=== PATIENT | female | born 1965 | race Hispanic/Latino ===

== ENCOUNTER 2017-11-23 17:59 | Inpatient (IN) | payer OTHER ==
[2017-11-23] MEDS ORDERED: Iohexol 240 (50 ml) PO STA (18:45)
[2017-11-23] MEDS ORDERED: Sodium Chloride 0.9% 500 ML IV STA (18:46)
[2017-11-23] MEDS ORDERED: Iohexol 240 (50 ml) ONE (19:16)
[2017-11-23 19:55] LABS: VENOUS BLOOD GAS BASE EXCESS 8.1 mmol/L (0.0-2.0); VENOUS BLOOD GAS PCO2 48 mmHg (40-60); VENOUS BLOOD GAS PO2 39 mm/Hg (30-55); VENOUS BLOOD PH 7.45 (7.32-7.43)
[2017-11-23 20:02] LABS: ALB/GLOB RATIO 1.2 (1.0-2.1); ALBUMIN 4.4 g/dL (3.5-5.0); CALCIUM 9.7 mg/dL (8.4-10.2); GFR AFRICAN-AMERICAN > 60; GFR NON-AFRICAN AMERICAN > 60; LIPASE 41 U/L (23-300); PROTHROMBIN TIME 11.2 Seconds (9.8-13.1)
[2017-11-23 20:03] LABS: BASO % 0.1 % (0.0-2.0); EOS % 0.1 % (0.0-4.0); HEMOGLOBIN 14.3 g/dL (12.0-16.0); LYMPH # 0.9 K/uL (1.0-4.3); LYMPH % 7.9 % (20.0-40.0); MEAN CELL VOLUME 87.3 fl (81.0-99.0); MEAN CORPUSCULAR HEMOGLOBIN 29.2 pg (27.0-31.0); MEAN CORPUSCULAR HGB CONC 33.4 g/dL (33.0-37.0); MEAN PLATELET VOLUME 8.8 fl (7.2-11.7); MONO # 0.4 K/uL (0.0-0.8); MONO % 3.7 % (0.0-10.0); NEUT # 9.6 K/uL (1.8-7.0); NEUT % 88.2 % (50.0-75.0); PLATELET COUNT 287 K/uL (130-400); RBC 4.91 Mil/uL (3.80-5.20); RED CELL DISTRIBUTION WIDTH 13.7 % (11.5-14.5); WHITE BLOOD COUNT 10.9 K/uL (4.8-10.8)
[2017-11-23 20:22] LABS: BARBITURATES, UR NEGATIVE (NEGATIVE); BENZODIAZEPINES, UR NEGATIVE (NEGATIVE); OPIATES, UR NEGATIVE (NEGATIVE); PHENCYCLIDINE, UR NEGATIVE (NEGATIVE)
[2017-11-23 20:23] LABS: ALT/SGPT 45 U/L (9-52); AST/SGOT 40 U/L (14-36); BLOOD UREA NITROGEN 12 mg/dl (7-17)
[2017-11-23] MEDS ORDERED: Iohexol 300 100 ML IJ ONE (21:14)
[2017-11-23 21:55] LABS: BANDS 3 % (0-2); HYPOCHROMIC SLIGHT; LYMPHOCYTE 9 % (20-50); MONOCYTE 4 % (0-10); NEUTROPHIL 84 % (42-75); PLATELET ESTIMATE NORMAL (NORMAL); TOTAL CELLS COUNTED 100
--- NOTE | 2017-11-23 22:08 | ED PDOC ---
HPI: Abdomen Time Seen by Provider: 11/23/17 18:30 Chief Complaint (Nursing): Abdominal Pain Chief Complaint (Provider): Abdominal pain History Per: Patient History/Exam Limitations: no limitations Onset/Duration Of Symptoms: Hrs (18:00) Location Of Pain/Discomfort: Diffuse Associated Symptoms: Nausea, Vomiting, Constipation Additional Complaint(s): Sarah Varghese is a 52 year old female, with a past medical history of HTN, who presents to the emergency department complaining of abdominal pain onset since 18:00 today while at rest. Patient last ate at 17:00 and was feeling well prior to that. Patient reports the pain is diffused and is more severe in upper and central abdomen associated with constipation, nausea and non bloody, non bilious vomiting. She hasn't taken anything for the pain. Patient is requesting morphine. She denies any other medical complaints. PMD: Pardeep Vega Past Medical History Reviewed: Historical Data, Nursing Documentation, Vital Signs Vital Signs: Last Vital Signs Temp 97.5 F L 11/26/17 08:11 Pulse 65 11/26/17 08:11 Resp 20 11/26/17 08:11 BP 117/78 11/26/17 08:11 Pulse Ox 99 11/26/17 08:11 - Medical History PMH: HTN - Surgical History Surgical History: Appendectomy, Cholecystectomy, Hernia Repair (umbilical x2), C -Section - Family History Family History: States: Hypertension - Social History Current smoker - smoking cessation education provided: No Alcohol: None Drugs: Denies - Home Medications Home Medications: Ambulatory Orders Medication Instructions Recorded Atenolol [Tenormin] 25 mg DAILY 11/24/17 Atorvastatin [Lipitor] 10 mg PO DAILY 11/24/17 amLODIPine [Norvasc] 10 mg DAILY 11/24/17 - Allergies Allergies/Adverse Reactions: Allergies Allergy/AdvReac Type Severity Reaction Status Date / Time No Known Allergies Allergy Unverified 10/31/14 11:45 Review of Systems ROS Statement: Except As Marked, All Systems Reviewed And Found Negative Gastrointestinal: Positive for: Nausea, Vomiting (non bloody non bilious ), Abdominal Pain, Constipation Physical Exam - Reviewed Nursing Documentation Reviewed: Yes Vital Signs Reviewed: Yes - Physical Exam Appears: Positive for: In Acute Distress (moderate painful) Head Exam: Positive for: ATRAUMATIC, NORMOCEPHALIC Skin: Positive for: Normal Color, Warm, Dry Eye Exam: Positive for: Normal appearance ENT: Positive for: Other (tacky mucous membrane) Neck: Positive for: Painless ROM, Supple Cardiovascular/Chest: Positive for: Regular Rate, Rhythm. Negative for: Murmur Respiratory: Positive for: Normal Breath Sounds. Negative for: Respiratory Distress Gastrointestinal/Abdominal: Positive for: Soft, Tenderness (diffusely ). Negative for: Mass, Guarding, Rebound Back: Positive for: Normal Inspection. Negative for: L CVA Tenderness, R CVA Tenderness, Decreased ROM Extremity: Positive for: Normal ROM. Negative for: Deformity, Swelling Lymphatic: Negative for: Adenopathy Neurologic/Psych: Positive for: Alert, Oriented - Laboratory Results Result Diagrams: 11/25/17 06:00 11/25/17 06:00 - ECG O2 Sat by Pulse Oximetry: 97 (RA) Pulse Ox Interpretation: Normal Medical Decision Making Medical Decision Making: Initial Impression: abdominal pain. Differential includes but not limited to: obstruction, colitis, diverticulitis, mesenteric ischemia, intra-abdominal abscess. Initial Plan: --Type and screen --VBG --Abd Pelvis PO & IV Contrast [CT] --CMP --Drug screen, urine --Lipase --Magnesium --Phosphorus --Urine --Urine dipstick --CBC w/ differential --PTT --PT --Dextrose 5%-0.9% NS 500 ml 1,000 ml IV 100 mls/hr --Morphine 4 mg IVP --Sodium Chloride 500 ml IV 500 mls/hr --Omnipaque 240 50 ml PO --Zofran ODT 4 mg PO --Blood culture --Reevaluation 22:15 Abdomen/Pelvis CT FINDINGS: Lung bases: Unremarkable. No mass. No consolidation. Mediastinum: Moderate hiatal hernia. ABDOMEN: Liver: Hepatic steatosis. Gallbladder and bile ducts: Cholecystectomy. No ductal dilation. Pancreas: Unremarkable. No mass. No ductal dilation. Spleen: Unremarkable. No splenomegaly. Adrenals: Unremarkable. No mass. Kidneys and ureters: Unremarkable. No solid mass. No hydronephrosis. Stomach and bowel: Multiple dilated small bowel loops in the left mid abdomen and in the pelvis. Small bowel feces sign. Transition point likely in the pelvis. Stranding of the mesenteric fat. Colonic diverticulosis. Appendix: No findings to suggest acute appendicitis. PELVIS: Bladder: Unremarkable. No mass. Reproductive: Unremarkable as visualized. ABDOMEN and PELVIS: Intraperitoneal space: Unremarkable. No free air. No significant fluid collection. Bones/joints: No acute fracture. No dislocation. Soft tissues: Unremarkable. Vasculature: Unremarkable. No abdominal aortic aneurysm. Lymph nodes: Unremarkable. No enlarged lymph nodes. IMPRESSION: 1. CT findings consistent with mid small bowel obstruction. 2. Remainder of findings as above. DW pt findings and plan of care. JESSIE Gonzáles president [employer] and Dr Oseguera Surgery. Hospitalized for acute small bowel obstruction. Needs IVF and NPO for now. Scribe Attestation: Documented by Colby Yates, acting as a scribe for Birgit Mac MD Provider Scribe Attestation: All medical record entries made by the Scribe were at my direction and personally dictated by me. I have reviewed the chart and agree that the record accurately reflects my personal performance of the history, physical exam, medical decision making, and the department course for this patient. I have also personally directed, reviewed, and agree with the discharge instructions and disposition. Disposition - Clinical Impression Clinical Impression: SBO (small bowel obstruction) Counseled Patient/Family Regarding: Studies Performed, Diagnosis - Disposition Disposition Time: 22:15 Condition: FAIR - Pt Status Changed To: Hospital Disposition Of: Inpatient - Admit Certification Admit to Inpatient:: After my assessment, the patient will require hospitalization for at least two midnights. This is because of the severity of symptoms shown, intensity of services needed, and/or the medical risk in this patient being treated as an outpatient. - POA Present On Arrival: None
--- NOTE | 2017-11-23 22:16 | CT ---
EXAM: CT Abdomen and Pelvis With Intravenous Contrast CLINICAL HISTORY: 52 years old, female; Pain; Abdominal pain; Periumbilical; Prior surgery; Surgery date: 6+ months; Surgery type: Hernia repair x 2, cholecystectomy, appendectomy, ; Additional info: Abd pain multiple prior abd surgeries TECHNIQUE: Axial computed tomography images of the abdomen and pelvis with intravenous contrast. All CT scans at this facility use one or more dose reduction techniques, viz.: automated exposure control; ma/kV adjustment per patient size (including targeted exams where dose is matched to indication; i.e. head); or iterative reconstruction technique. Coronal and sagittal reformatted images were created and reviewed. CONTRAST: 95 mL of omnipaque administered intravenously. COMPARISON: No relevant prior studies available. FINDINGS: Lung bases: Unremarkable. No mass. No consolidation. Mediastinum: Moderate hiatal hernia. ABDOMEN: Liver: Hepatic steatosis. Gallbladder and bile ducts: Cholecystectomy. No ductal dilation. Pancreas: Unremarkable. No mass. No ductal dilation. Spleen: Unremarkable. No splenomegaly. Adrenals: Unremarkable. No mass. Kidneys and ureters: Unremarkable. No solid mass. No hydronephrosis. Stomach and bowel: Multiple dilated small bowel loops in the left mid abdomen and in the pelvis. Small bowel feces sign. Transition point likely in the pelvis. Stranding of the mesenteric fat. Colonic diverticulosis. Appendix: No findings to suggest acute appendicitis. PELVIS: Bladder: Unremarkable. No mass. Reproductive: Unremarkable as visualized. ABDOMEN and PELVIS: Intraperitoneal space: Unremarkable. No free air. No significant fluid collection. Bones/joints: No acute fracture. No dislocation. Soft tissues: Unremarkable. Vasculature: Unremarkable. No abdominal aortic aneurysm. Lymph nodes: Unremarkable. No enlarged lymph nodes. IMPRESSION: 1. CT findings consistent with mid small bowel obstruction. 2. Remainder of findings as above.
--- NOTE | 2017-11-23 22:58 | CP.PCM.CON ---
<Wes Gonzáles - Last Filed: 11/24/17 00:40> History of Present Illness - History of Present Illness History of Present Illness: General Surgery Consult Note: Dr. Oseguera 52F with PMHx of HTN presents to [facility] ED with complaints of abdominal pain. Patient states abdominal pain began two days ago and it has been worsening since. According to patient patient began around 11PM on 11/22/17. She states the pain was located along her mid abdominal region. She denies any radiation and describes pain as cramping in nature. Patient admits to having multiple bouts of non-bloody emesis, last episode being upon arrival to ED. At time of examination patient complained of abdominal distension and nausea. Patient states she has not had a bowel movement in the past 2 days and also denies passing flatus. She denies headaches/dizziness, chest pain, shortness of breath , diarrhea, dysuria. NGT inserted at bedside with no complications. Patient tolerated procedure well. Upon insertion ~100-150cc of bilious fluid ouput. PMHx: as stated above PSurgHx: laparoscopic cholecystectomy, umbilical hernia repair w. mesh x2, Csection, appendectomy Soc Hx: EtOH use in social settings, denies smoking, denies illicit drug use Allergies: NKDA Fam Hx: non-contributory Review of Systems - Review of Systems Review of Systems: 12pt ROS unremarkable, except as stated in HPI Past Patient History - Infectious Disease Hx of Infectious Diseases: None - Past Social History Alcohol: None Drugs: Denies - CARDIAC Hx Hypertension: Yes - PSYCHIATRIC Hx Substance Use: No - SURGICAL HISTORY Hx Appendectomy: Yes Hx Cholecystectomy: Yes Meds Allergies/Adverse Reactions: Allergies Allergy/AdvReac Type Severity Reaction Status Date / Time No Known Allergies Allergy Unverified 10/31/14 11:45 - Medications Medications: Current Medications Dextrose/Sodium Chloride (Dextrose 5%-0.9% Ns 500 Ml) 1,000 mls @ 100 mls/hr IV .Q10H [facility] Last Admin: 11/23/17 19:15 Dose: 100 mls/hr Physical Exam - Constitutional Appears: No Acute Distress - Head Exam Head Exam: NORMOCEPHALIC - Eye Exam Eye Exam: EOMI, Normal appearance - ENT Exam ENT Exam: Mucous Membranes Moist - Respiratory Exam Respiratory Exam: NORMAL BREATHING PATTERN - Cardiovascular Exam Cardiovascular Exam: +S1, +S2 - GI/Abdominal Exam GI & Abdominal Exam: Distended, Soft. absent: Firm, Guarding, Rebound, Rigid, Tenderness - Neurological Exam Neurological exam: Alert, Oriented x3 - Psychiatric Exam Psychiatric exam: Normal Mood - Skin Skin Exam: Dry, Intact, Warm Results - Vital Signs Recent Vital Signs: Last Vital Signs Temp 99.4 F 11/23/17 18:24 Pulse 78 11/23/17 18:24 Resp 16 11/23/17 18:24 BP 127/86 11/23/17 18:24 Pulse Ox 97 11/23/17 22:53 - Labs Result Diagrams: 11/23/17 19:30 11/23/17 19:30 Labs: Laboratory Results - last 24 hr 11/23/17 11/23/17 11/23/17 19:30 19:30 19:30 WBC 10.9 H RBC 4.91 Hgb 14.3 Hct 42.8 MCV 87.3 MCH 29.2 MCHC 33.4 RDW 13.7 Plt Count 287 MPV 8.8 Neut % (Auto) 88.2 H Lymph % (Auto) 7.9 L Howard % (Auto) 3.7 Eos % (Auto) 0.1 Baso % (Auto) 0.1 Neut # (Auto) 9.6 H Lymph # (Auto) 0.9 L Howard # (Auto) 0.4 Eos # (Auto) 0.0 Baso # (Auto) 0.0 Neutrophils % (Manual) 84 H Band Neutrophils % 3 H Lymphocytes % (Manual) 9 L Monocytes % (Manual) 4 Platelet Estimate Normal Hypochromasia (manual) Slight PT INR APTT pO2 VBG pH VBG pCO2 VBG HCO3 VBG Total CO2 VBG O2 Sat (Calc) VBG Base Excess VBG Potassium Glucose Lactate FiO2 Sodium 144 Potassium 3.4 L Chloride 99 Carbon Dioxide 29 Anion Gap 19 BUN 12 Creatinine 0.6 L Est GFR ( Amer) > 60 Est GFR (Non-Af Amer) > 60 Random Glucose 133 H Calcium 9.7 Phosphorus 4.7 H Magnesium 2.2 Total Bilirubin 0.9 AST 40 H ALT 45 Alkaline Phosphatase 48 Total Protein 8.0 Albumin 4.4 Globulin 3.6 Albumin/Globulin Ratio 1.2 Lipase 41 Venous Blood Potassium Urine Opiates Screen Negative Urine Methadone Screen Negative Ur Barbiturates Screen Negative Ur Phencyclidine Scrn Negative Ur Amphetamines Screen Negative U Benzodiazepines Scrn Negative U Oth Cocaine Metabols Negative U Cannabinoids Screen Negative BBK History Checked 11/23/17 11/23/17 11/23/17 19:30 19:30 19:40 WBC RBC Hgb Hct MCV MCH MCHC RDW Plt Count MPV Neut % (Auto) Lymph % (Auto) Howard % (Auto) Eos % (Auto) Baso % (Auto) Neut # (Auto) Lymph # (Auto) Howard # (Auto) Eos # (Auto) Baso # (Auto) Neutrophils % (Manual) Band Neutrophils % Lymphocytes % (Manual) Monocytes % (Manual) Platelet Estimate Hypochromasia (manual) PT 11.2 INR 1.0 APTT 30.0 pO2 39 VBG pH 7.45 H VBG pCO2 48 VBG HCO3 30.7 VBG Total CO2 34.9 H VBG O2 Sat (Calc) 77.0 H VBG Base Excess 8.1 H VBG Potassium 3.1 L Glucose 143 H Lactate 1.4 FiO2 21.0 Sodium 140.0 Potassium Chloride 102.0 Carbon Dioxide Anion Gap BUN Creatinine Est GFR ( Amer) Est GFR (Non-Af Amer) Random Glucose Calcium Phosphorus Magnesium Total Bilirubin AST ALT Alkaline Phosphatase Total Protein Albumin Globulin Albumin/Globulin Ratio Lipase Venous Blood Potassium 3.1 L Urine Opiates Screen Urine Methadone Screen Ur Barbiturates Screen Ur Phencyclidine Scrn Ur Amphetamines Screen U Benzodiazepines Scrn U Oth Cocaine Metabols U Cannabinoids Screen BBK History Checked No verified bt - Imaging and Cardiology CT scan - abdomen Status: Image reviewed by me, Report reviewed by me Assessment & Plan - Assessment and Plan (Free Text) Assessment: 52F with SBO Plan: -NPO -IVF -Analgesic/Anti-emetic -SCDs -NGT to low continuous wall suction -Discussed with Dr. Oseguera who agrees with plan -Ioana PGY2 <Gilbert Oseguera - Last Filed: 11/24/17 11:27> History of Present Illness - History of Present Illness History of Present Illness: Patient was seen and examined at the bedside. Agree with resident's note above. Meds - Medications Medications: Current Medications Potassium Chloride/Dextrose/Sod Cl (Potassium Chl 40 Meq In D5-1/2ns) 1,000 mls @ 125 mls/hr IV .Q8H [facility] Stop: 04/14/18 09:23 Morphine Sulfate (Morphine) 4 mg IVP Q6 PRN PRN Reason: Pain, moderate (4-7) Ondansetron HCl (Zofran Inj) 4 mg IVP Q4 PRN PRN Reason: Nausea/Vomiting Results - Vital Signs Recent Vital Signs: Last Vital Signs Temp 98.5 F 11/24/17 08:25 Pulse 70 11/24/17 08:25 Resp 20 11/24/17 08:25 BP 106/65 11/24/17 08:25 Pulse Ox 93 L 11/24/17 08:25 - Labs Result Diagrams: 11/24/17 08:00 11/24/17 08:00 Labs: Laboratory Results - last 24 hr 11/23/17 11/23/17 11/23/17 19:30 19:30 19:30 WBC 10.9 H RBC 4.91 Hgb 14.3 Hct 42.8 MCV 87.3 MCH 29.2 MCHC 33.4 RDW 13.7 Plt Count 287 MPV 8.8 Neut % (Auto) 88.2 H Lymph % (Auto) 7.9 L Howard % (Auto) 3.7 Eos % (Auto) 0.1 Baso % (Auto) 0.1 Neut # (Auto) 9.6 H Lymph # (Auto) 0.9 L Howard # (Auto) 0.4 Eos # (Auto) 0.0 Baso # (Auto) 0.0 Neutrophils % (Manual) 84 H Band Neutrophils % 3 H Lymphocytes % (Manual) 9 L Monocytes % (Manual) 4 Platelet Estimate Normal Hypochromasia (manual) Slight PT INR APTT pO2 VBG pH VBG pCO2 VBG HCO3 VBG Total CO2 VBG O2 Sat (Calc) VBG Base Excess VBG Potassium Glucose Lactate FiO2 Sodium 144 Potassium 3.4 L Chloride 99 Carbon Dioxide 29 Anion Gap 19 BUN 12 Creatinine 0.6 L Est GFR ( Amer) > 60 Est GFR (Non-Af Amer) > 60 Random Glucose 133 H Calcium 9.7 Phosphorus 4.7 H Magnesium 2.2 Total Bilirubin 0.9 AST 40 H ALT 45 Alkaline Phosphatase 48 Total Protein 8.0 Albumin 4.4 Globulin 3.6 Albumin/Globulin Ratio 1.2 Lipase 41 Venous Blood Potassium Urine Opiates Screen Negative Urine Methadone Screen Negative Ur Barbiturates Screen Negative Ur Phencyclidine Scrn Negative Ur Amphetamines Screen Negative U Benzodiazepines Scrn Negative U Oth Cocaine Metabols Negative U Cannabinoids Screen Negative Blood Type Antibody Screen BBK History Checked 11/23/17 11/23/17 11/23/17 19:30 19:30 19:40 WBC RBC Hgb Hct MCV MCH MCHC RDW Plt Count MPV Neut % (Auto) Lymph % (Auto) Howard % (Auto) Eos % (Auto) Baso % (Auto) Neut # (Auto) Lymph # (Auto) Howard # (Auto) Eos # (Auto) Baso # (Auto) Neutrophils % (Manual) Band Neutrophils % Lymphocytes % (Manual) Monocytes % (Manual) Platelet Estimate Hypochromasia (manual) PT 11.2 INR 1.0 APTT 30.0 pO2 39 VBG pH 7.45 H VBG pCO2 48 VBG HCO3 30.7 VBG Total CO2 34.9 H VBG O2 Sat (Calc) 77.0 H VBG Base Excess 8.1 H VBG Potassium 3.1 L Glucose 143 H Lactate 1.4 FiO2 21.0 Sodium 140.0 Potassium Chloride 102.0 Carbon Dioxide Anion Gap BUN Creatinine Est GFR ( Amer) Est GFR (Non-Af Amer) Random Glucose Calcium Phosphorus Magnesium Total Bilirubin AST ALT Alkaline Phosphatase Total Protein Albumin Globulin Albumin/Globulin Ratio Lipase Venous Blood Potassium 3.1 L Urine Opiates Screen Urine Methadone Screen Ur Barbiturates Screen Ur Phencyclidine Scrn Ur Amphetamines Screen U Benzodiazepines Scrn U Oth Cocaine Metabols U Cannabinoids Screen Blood Type O POSITIVE Antibody Screen Negative BBK History Checked No verified bt 11/24/17 11/24/17 08:00 08:00 WBC 7.5 RBC 4.09 Hgb 11.9 L D Hct 36.1 MCV 88.4 MCH 29.2 MCHC 33.0 RDW 13.4 Plt Count 250 MPV 8.4 Neut % (Auto) 64.3 Lymph % (Auto) 27.6 Howard % (Auto) 6.4 Eos % (Auto) 1.3 Baso % (Auto) 0.4 Neut # (Auto) 4.8 Lymph # (Auto) 2.1 Howard # (Auto) 0.5 Eos # (Auto) 0.1 Baso # (Auto) 0.0 Neutrophils % (Manual) Band Neutrophils % Lymphocytes % (Manual) Monocytes % (Manual) Platelet Estimate Hypochromasia (manual) PT INR APTT pO2 VBG pH VBG pCO2 VBG HCO3 VBG Total CO2 VBG O2 Sat (Calc) VBG Base Excess VBG Potassium Glucose Lactate FiO2 Sodium 145 Potassium 3.1 L Chloride 103 Carbon Dioxide 30 Anion Gap 15 BUN 12 Creatinine 0.7 Est GFR ( Amer) > 60 Est GFR (Non-Af Amer) > 60 Random Glucose 99 Calcium 8.7 Phosphorus Magnesium Total Bilirubin 0.8 AST 42 H ALT 44 Alkaline Phosphatase 42 Total Protein 6.2 L Albumin 3.5 D Globulin 2.7 Albumin/Globulin Ratio 1.3 Lipase Venous Blood Potassium Urine Opiates Screen Urine Methadone Screen Ur Barbiturates Screen Ur Phencyclidine Scrn Ur Amphetamines Screen U Benzodiazepines Scrn U Oth Cocaine Metabols U Cannabinoids Screen Blood Type Antibody Screen BBK History Checked
[2017-11-24] MEDS ORDERED: Lactated Ringer's 1,000 ML IV SCH (00:30)
--- NOTE | 2017-11-24 07:50 | RAD ---
PROCEDURE: CHEST RADIOGRAPH, 1 VIEW HISTORY: abd pain COMPARISON: Chest radiographs 04/13/2013. FINDINGS: A nasogastric tube is in place with the tip terminating at the region the gastric viscus in the left upper quadrant abdomen. LUNGS: No acute infiltrate bilaterally. Inspiratory volume appears diminished in the interval. PLEURA: No pneumothorax or pleural fluid seen. CARDIOVASCULAR: Normal. OSSEOUS STRUCTURES: No significant abnormalities. VISUALIZED UPPER ABDOMEN: Normal. OTHER FINDINGS: None. IMPRESSION: Diminished inspiratory volume. No acute infiltrate, pleural effusion or cardiovascular pathology grossly evident. NG tube in place as discussed above.
[2017-11-24 08:29] LABS: BASO % 0.4 % (0.0-2.0); EOS # 0.1 K/uL (0.0-0.7); EOS % 1.3 % (0.0-4.0); HEMOGLOBIN 11.9 g/dL (12.0-16.0); LYMPH # 2.1 K/uL (1.0-4.3); LYMPH % 27.6 % (20.0-40.0); MEAN CELL VOLUME 88.4 fl (81.0-99.0); MEAN CORPUSCULAR HEMOGLOBIN 29.2 pg (27.0-31.0); MEAN PLATELET VOLUME 8.4 fl (7.2-11.7); MONO # 0.5 K/uL (0.0-0.8); MONO % 6.4 % (0.0-10.0); NEUT # 4.8 K/uL (1.8-7.0); NEUT % 64.3 % (50.0-75.0); NRBC % 0.1 % (0.0-0.0); RBC 4.09 Mil/uL (3.80-5.20); RED CELL DISTRIBUTION WIDTH 13.4 % (11.5-14.5); WHITE BLOOD COUNT 7.5 K/uL (4.8-10.8)
--- NOTE | 2017-11-24 08:30 | CP.PCM.PN ---
<Devendra Randle - Last Filed: 11/24/17 08:28> Subjective - Date & Time of Evaluation Date of Evaluation: 11/24/17 Time of Evaluation: 07:30 - Subjective Subjective: General Surgery Progress Note- Dr. Oseguera 52 female with PMHx of HTN seen and evaluated at bedside for small bowel obstruction. Patient is seen resting comfortably at bedside, in NAD, and AA0x3. Patient denies acute overnight events. Denies passing gas. She denies headaches/ dizziness, chest pain, shortness of breath, diarrhea, dysuria. NGT intact. Objective - Vital Signs/Intake and Output Vital Signs (last 24 hours): Temp Pulse Resp BP Pulse Ox 98.5 F 70 20 106/65 93 L 11/24/17 08:25 11/24/17 08:25 11/24/17 08:25 11/24/17 08:25 11/24/17 08:25 - Medications Medications: Current Medications Dextrose/Sodium Chloride (Dextrose 5%-0.9% Ns 500 Ml) 1,000 mls @ 100 mls/hr IV .Q10H [facility] Last Admin: 11/24/17 05:37 Dose: Not Given Lactated Ringer's (Lactated Ringer's) 1,000 mls @ 125 mls/hr IV .Q8H [facility] Last Admin: 11/24/17 01:26 Dose: 125 mls/hr Morphine Sulfate (Morphine) 4 mg IVP Q6 PRN PRN Reason: Pain, moderate (4-7) Ondansetron HCl (Zofran Inj) 4 mg IVP Q4 PRN PRN Reason: Nausea/Vomiting - Labs Labs: 11/23/17 19:30 11/23/17 19:30 PT 11.2 Seconds (9.8-13.1) 11/23/17 19:30 INR 1.0 (0.9-1.2) 11/23/17 19:30 APTT 30.0 Seconds (25.6-37.1) 11/23/17 19:30 - Constitutional Appears: Non-toxic, No Acute Distress - Head Exam Head Exam: NORMOCEPHALIC - Eye Exam Eye Exam: EOMI, Normal appearance - ENT Exam ENT Exam: Mucous Membranes Moist - Respiratory Exam Respiratory Exam: NORMAL BREATHING PATTERN - Cardiovascular Exam Cardiovascular Exam: +S1, +S2 - GI/Abdominal Exam GI & Abdominal Exam: Soft. absent: Firm, Guarding, Rigid, Tenderness, Rebound Additional comments: less pain with palpation less distended - Neurological Exam Neurological Exam: Alert, Awake, Oriented x3 - Psychiatric Exam Psychiatric exam: Normal Mood - Skin Skin Exam: Dry, Intact, Warm Assessment and Plan - Assessment and Plan (Free Text) Assessment: 52F with SBO Plan: -c/w NPO -c/w IVF -c/w Analgesic/Anti-emetic -c/w SCDs -NGT to low continuous wall suction -encourage to get OOB and ambulate more -further recs per Dr. Ana Rosa Randle DPM PGY-1 <Gilbert Oseguera - Last Filed: 11/24/17 11:29> Subjective - Date & Time of Evaluation Time of Evaluation: 11:00 - Subjective Subjective: Patient was seen and examined at the bedside. Agree with resident's note above. Objective - Vital Signs/Intake and Output Vital Signs (last 24 hours): Temp Pulse Resp BP Pulse Ox 98.5 F 70 20 106/65 93 L 11/24/17 08:25 11/24/17 08:25 11/24/17 08:25 11/24/17 08:25 11/24/17 08:25 - Medications Medications: Current Medications Potassium Chloride/Dextrose/Sod Cl (Potassium Chl 40 Meq In D5-1/2ns) 1,000 mls @ 125 mls/hr IV .Q8H [facility] Stop: 11/25/17 09:23 Morphine Sulfate (Morphine) 4 mg IVP Q6 PRN PRN Reason: Pain, moderate (4-7) Ondansetron HCl (Zofran Inj) 4 mg IVP Q4 PRN PRN Reason: Nausea/Vomiting - Labs Labs: 11/24/17 08:00 11/24/17 08:00 PT 11.2 Seconds (9.8-13.1) 11/23/17 19:30 INR 1.0 (0.9-1.2) 11/23/17 19:30 APTT 30.0 Seconds (25.6-37.1) 11/23/17 19:30
[2017-11-24 08:51] LABS: ALB/GLOB RATIO 1.3 (1.0-2.1); ALBUMIN 3.5 g/dL (3.5-5.0); ALT/SGPT 44 U/L (9-52); AST/SGOT 42 U/L (14-36); BLOOD UREA NITROGEN 12 mg/dl (7-17); CALCIUM 8.7 mg/dL (8.4-10.2); GFR AFRICAN-AMERICAN > 60; GFR NON-AFRICAN AMERICAN > 60
[2017-11-24] MEDS ORDERED: Potassium Chl 40 mEq in D5-1/2 1,000 ML IV SCH (09:30)
[2017-11-24] MEDS: Potassium Chl 40 mEq in D5-1/2 1,000 ML IV SCH (11:41)
--- NOTE | 2017-11-24 23:53 | CP.PCM.HP ---
History of Present Illness - History of Present Illness History of Present Illness: 52F with PMHx of HTN presents to [facility] ED with complaints of abdominal pain. Patient states abdominal pain began two days ago and it has been worsening since. According to patient pain began around 11PM on 11/22/17, located along her mid abdominal region. She denies any radiation and describes pain as cramping in nature. Patient admits to having multiple bouts of non-bloody emesis , last episode being upon arrival to ED. At time of examination patient complained of abdominal distension and nausea. Patient states she has not had a bowel movement in the past 2 days and also denies passing flatus. She denies headaches/dizziness, chest pain, shortness of breath, diarrhea, dysuria. NGT inserted at bedside by surgery team with no complications. Patient tolerated procedure well. with ~100-150cc of bilious fluid output recorded. Present on Admission - Present on Admission Any Indicators Present on Admission: No Review of Systems - Constitutional Constitutional: absent: As Per HPI, Anorexia, Chills, Daytime Sleepiness, Excessive Sweating, Fatigue, Fever, Frequent Falls, Headache, Increased Appetite , Lethargy, Malaise, Night Sweats, Snoring, Sleep Apnea, Weight Gain, Weight Loss, Weakness, Other - EENT Eyes: absent: As Per HPI, Blind Spots, Blurred Vision, Change in Vision, Decreased Night Vision, Diplopia, Discharge, Dry Eye, Exophthalmos, Floaters, Irritation, Itchy Eyes, Loss of Peripheral Vision, Pain, Photophobia, Requires Corrective Lenses, Sees Flashes, Spots in Vision, Tunnel Vision, Other Visual Disturbances, Loss of Vision, Other Ears: absent: As Per HPI, Decreased Hearing, Ear Discharge, Ear Pain, Tinnitus, Abnormal Hearing, Disequilibrium, Dizziness, Other Nose/Mouth/Throat: absent: As Per HPI, Epistaxis, Nasal Congestion, Nasal Discharge, Nasal Obstruction, Nasal Trauma, Nose Pain, Post Nasal Drip, Sinus Pain, Sinus Pressure, Bleeding Gums, Change in Voice, Dental Pain, Dry Mouth, Dysphagia, Halitosis, Hoarsness, Lip Swelling, Mouth Lesions, Mouth Pain, Odynophagia, Sore Throat, Throat Swelling, Tongue Swelling, Facial Pain, Neck Pain, Neck Mass, Other - Cardiovascular Cardiovascular: absent: As Per HPI, Acrocyanosis, Chest Pain, Chest Pain at Rest , Chest Pain with Activity, Claudication, Diaphoresis, Dyspnea, Dyspnea on Exertion, Edema, Irregular Heart Rhythm, Pain Radiating to Arm/Neck/Jaw, Leg Edema, Leg Ulcers, Lightheadedness, Orthopnea, Palpitations, Paroxysmal Nocturnal Dyspnea, Pedal Edema, Radiating Pain, Rapid Heart Rate, Slow Heart Rate, Syncope, Other - Respiratory Respiratory: absent: As Per HPI, Cough, Dyspnea, Hemoptysis, Dyspnea on Exertion , Wheezing, Snoring, Stridor, Pain on Inspiration, Chest Congestion, Excessive Mucous Production, Change in Mucous Color, Pain with Coughing, Other - Gastrointestinal Gastrointestinal: Abdominal Pain, Constipation, Dyspepsia, Nausea, Vomiting. absent: As Per HPI, Belching, Bloating, Change in Bowel Habits, Change in Stool Character, Coffee Ground Emesis, Cramping, Diarrhea, Dysphagia, Early Satiety, Excessive Flatus, Fecal Incontinence, Heartburn, Hematemesis, Hematochezia, Loose Stools, Melena, Odynophagia, Temesmus, Other - Genitourinary Genitourinary: absent: As Per HPI, Change in Urinary Stream, Difficulty Urinating, Dysuria, Flank Pain, Hematuria, Pyuria, Nocturia, Urinary Incontinence, Urinary Frequency, Urinary Hesitance, Urinary Urgency, Voiding Freq/Small Amts, Freq UTI, Hx Renal/Bladder Calculi, Hx /Renal Surgery, Bladder Distension, Other - Musculoskeletal Musculoskeletal: absent: As Per HPI, Abnormal Gait, Arthralgias, Atrophy, Back Pain, Deformity, Joint Swelling, Limited Range of Motion, Loss of Height, Muscle Cramps, Muscle Weakness, Myalgias, Neck Pain, Numbness, Radiating Pain into Limb, Stiffness, Tingling, Other - Integumentary Integumentary: absent: As Per HPI, Acne, Alopecia, Bleeding Lesions, Change in Hair, Change in Nails, Change in Pigmentation, Changing Lesions, Dry Skin, Erythema, Furuncle, Hirsutism, Lesions, New Lesions, Non-Healing Lesions, Photosensitivity, Pruritus, Rash, Skin Pain, Skin Ulcer, Sores, Striae, Swelling , Unusual Bruising, Wounds, Jaundice, Other - Neurological Neurological: absent: As Per HPI, Abnormal Gait, Abnormal Hearing, Abnormal Movements, Abnormal Speech, Behavioral Changes, Burning Sensations, Confusion, Convulsions, Disequilibrium, Dizziness, Numbness, Focal Weakness, Frequent Falls , Headaches, Lack of Coordination, Loss of Vision, Memory Loss, Paresthesias, Radicular Pain, Restless Legs, Sensory Deficit, Syncope, Tingling, Tremor, Vertigo, Weakness, Other Visual Disturbances, Other - Psychiatric Psychiatric: absent: As Per HPI, Abnormal Sleep Pattern, Anhedonia, Anxiety, Auditory Hallucinations, Behavioral Changes, Change in Appetite, Change in Libido, Confusion, Depression, Difficulty Concentrating, Hallucinations, Homicidal Ideation, Hopelessness, Irritability, Memory Loss, Mood Swings, Panic Attacks, Paranoia, Suicidal Ideation, Visual Hallucinations, Tactile Hallucinations, Other - Endocrine Endocrine: absent: As Per HPI, Change in Body Appearance, Change in Libido, Cold Intolorance, Deepening of Voice, Excessive Sweating, Fatigue, Flushing, Heat Intolorance, Increase in Ring/Shoe/Hat Size, Palpitations, Polydipsia, Polyphagia, Polyuria, Other - Hematologic/Lymphatic Hematologic: absent: As Per HPI, Easy Bleeding, Easy Bruising, Lymphadenopathy, Other Past Patient History - Infectious Disease Hx of Infectious Diseases: None - Past Medical History & Family History Past Medical History?: Yes - Past Social History Smoking Status: Never Smoked - CARDIAC Hx Cardiac Disorders: Yes Hx Hypertension: Yes - PULMONARY Hx Respiratory Disorders: No - NEUROLOGICAL Hx Neurological Disorder: No - HEENT Hx HEENT Problems: No - RENAL Hx Chronic Kidney Disease: No - ENDOCRINE/METABOLIC Hx Endocrine Disorders: No - HEMATOLOGICAL/ONCOLOGICAL Hx Blood Disorders: No - INTEGUMENTARY Hx Dermatological Problems: No - MUSCULOSKELETAL/RHEUMATOLOGICAL Hx Musculoskeletal Disorders: No Hx Falls: Yes - GASTROINTESTINAL Hx Gastrointestinal Disorders: No - GENITOURINARY/GYNECOLOGICAL Hx Genitourinary Disorders: No - PSYCHIATRIC Hx Psychophysiologic Disorder: No Hx Substance Use: No - SURGICAL HISTORY Hx Surgeries: Yes Hx Appendectomy: Yes Hx Cholecystectomy: Yes Other/Comment: Hernia repair x2, . - ANESTHESIA Hx Anesthesia: Yes Hx Anesthesia Reactions: No Meds Allergies/Adverse Reactions: Allergies Allergy/AdvReac Type Severity Reaction Status Date / Time No Known Allergies Allergy Unverified 10/31/14 11:45 Physical Exam - Constitutional Appears: Well, Non-toxic, No Acute Distress - Head Exam Head Exam: ATRAUMATIC, NORMAL INSPECTION, NORMOCEPHALIC - Eye Exam Eye Exam: EOMI, Normal appearance Pupil Exam: NORMAL ACCOMODATION - ENT Exam ENT Exam: Mucous Membranes Moist, Normal Exam - Neck Exam Neck exam: Positive for: Full Rom, Normal Inspection - Respiratory Exam Respiratory Exam: Clear to Auscultation Bilateral, NORMAL BREATHING PATTERN - Cardiovascular Exam Cardiovascular Exam: REGULAR RHYTHM - GI/Abdominal Exam GI & Abdominal Exam: Hyperactive Bowel Sounds, Soft, Tenderness. absent: Bruit , Diminished Bowel Sounds, Distended, Firm, Guarding, Hernia, Hypoactive Bowel Sounds, Mass, Organomegaly, Pulsatile Mass, Rebound, Rigid Additional comments: Mild TTP mid abdomen hypogastric area - Rectal Exam Rectal Exam: NORMAL INSPECTION - Extremities Exam Extremities exam: Positive for: full ROM, normal capillary refill, normal inspection. Negative for: calf tenderness, joint swelling, pedal edema, tenderness, pedal pulses present - Back Exam Back exam: NORMAL INSPECTION - Neurological Exam Neurological exam: Alert, CN II-XII Intact, Normal Gait, Oriented x3 - Psychiatric Exam Psychiatric exam: Normal Affect, Normal Mood - Skin Skin Exam: Normal Color, Warm Results - Vital Signs Recent Vital Signs: Last Vital Signs Temp 99.1 F 11/24/17 17:27 Pulse 63 11/24/17 17:27 Resp 18 11/24/17 17:27 BP 111/71 11/24/17 17:27 Pulse Ox 95 11/24/17 17:27 - Labs Result Diagrams: 11/24/17 08:00 11/24/17 08:00 Labs: Laboratory Results - last 24 hr 11/24/17 11/24/17 08:00 08:00 WBC 7.5 RBC 4.09 Hgb 11.9 L D Hct 36.1 MCV 88.4 MCH 29.2 MCHC 33.0 RDW 13.4 Plt Count 250 MPV 8.4 Neut % (Auto) 64.3 Lymph % (Auto) 27.6 Jones % (Auto) 6.4 Eos % (Auto) 1.3 Baso % (Auto) 0.4 Neut # (Auto) 4.8 Lymph # (Auto) 2.1 [place] # (Auto) 0.5 Eos # (Auto) 0.1 Baso # (Auto) 0.0 Sodium 145 Potassium 3.1 L Chloride 103 Carbon Dioxide 30 Anion Gap 15 BUN 12 Creatinine 0.7 Est GFR ( Amer) > 60 Est GFR (Non-Af Amer) > 60 Random Glucose 99 Calcium 8.7 Total Bilirubin 0.8 AST 42 H ALT 44 Alkaline Phosphatase 42 Total Protein 6.2 L Albumin 3.5 D Globulin 2.7 Albumin/Globulin Ratio 1.3 Assessment & Plan - Assessment and Plan (Free Text) Assessment: 52 y/o female with HTN, chronic constipation, multiple abdominal surgery, obesity, now with SBO -continue NGT to LWS, monitor for acute changes -ambulation as tolerated, NPO for now, advance to clear liquid when able to -medical management, d/w pt about healthy diet and maintain ideal body wt, exercise, hydration -no DVT or GI ppx
[2017-11-25] MEDS ORDERED: DiphenhydrAMINE 50 mg/ml Inj IVP ONE (00:17)
[2017-11-25] MEDS: Potassium Chl 40 mEq in D5-1/2 1,000 ML IV SCH ×2 (02:51)
[2017-11-25 07:59] LABS: BASO % 0.6 % (0.0-2.0); EOS # 0.3 K/uL (0.0-0.7); EOS % 5.7 % (0.0-4.0); HEMOGLOBIN 12.3 g/dL (12.0-16.0); LYMPH # 1.8 K/uL (1.0-4.3); LYMPH % 31.8 % (20.0-40.0); MEAN CELL VOLUME 88.3 fl (81.0-99.0); MEAN CORPUSCULAR HEMOGLOBIN 29.5 pg (27.0-31.0); MEAN CORPUSCULAR HGB CONC 33.4 g/dL (33.0-37.0); MEAN PLATELET VOLUME 8.7 fl (7.2-11.7); MONO # 0.3 K/uL (0.0-0.8); MONO % 5.7 % (0.0-10.0); NEUT # 3.2 K/uL (1.8-7.0); NEUT % 56.2 % (50.0-75.0); NRBC % 0.1 % (0.0-0.0); RBC 4.17 Mil/uL (3.80-5.20); RED CELL DISTRIBUTION WIDTH 13.6 % (11.5-14.5); WHITE BLOOD COUNT 5.8 K/uL (4.8-10.8)
[2017-11-25 08:31] LABS: ALB/GLOB RATIO 1.2 (1.0-2.1); ALBUMIN 3.6 g/dL (3.5-5.0); ALT/SGPT 42 U/L (9-52); AST/SGOT 29 U/L (14-36); BLOOD UREA NITROGEN 8 mg/dl (7-17); CALCIUM 8.8 mg/dL (8.4-10.2); GFR AFRICAN-AMERICAN > 60; GFR NON-AFRICAN AMERICAN > 60
--- NOTE | 2017-11-25 08:34 | CP.PCM.PN ---
Subjective - Date & Time of Evaluation Date of Evaluation: 11/25/17 Time of Evaluation: 08:32 - Subjective Subjective: General Surgery Progress Note for Dr. Mcrae This 52F was seen and examined this AM at bedside she reports that she is feeling much better. She denies absominal pain nausea or vomiting, however she has not passed gas nor moved her bowels and she has had 600cc from her NGT over 24 hours and 200 of that over the last 12 hours. Objective - Vital Signs/Intake and Output Vital Signs (last 24 hours): Temp Pulse Resp BP Pulse Ox 98.3 F 63 19 113/75 96 11/25/17 00:00 11/25/17 00:00 11/25/17 00:00 11/25/17 00:00 11/25/17 00:00 Intake and Output: 11/25/17 11/25/17 06:59 18:59 Output Total 250 Balance -250 - Medications Medications: Current Medications Potassium Chloride/Dextrose/Sod Cl (Potassium Chl 40 Meq In D5-1/2ns) 1,000 mls @ 125 mls/hr IV .Q8H ASHLEY Stop: 11/25/17 09:23 Last Admin: 11/25/17 02:51 Dose: 125 mls/hr Morphine Sulfate (Morphine) 4 mg IVP Q6 PRN PRN Reason: Pain, moderate (4-7) Ondansetron HCl (Zofran Inj) 4 mg IVP Q4 PRN PRN Reason: Nausea/Vomiting Pantoprazole Sodium (Protonix Inj) 40 mg IVP DAILY [facility] Zolpidem Tartrate (Ambien) 5 mg PO HS PRN PRN Reason: sleeping difficulties - Labs Labs: 11/25/17 06:00 11/25/17 06:00 PT 11.2 Seconds (9.8-13.1) 11/23/17 19:30 INR 1.0 (0.9-1.2) 11/23/17 19:30 APTT 30.0 Seconds (25.6-37.1) 11/23/17 19:30 - Constitutional Appears: Non-toxic, No Acute Distress - Head Exam Head Exam: NORMAL INSPECTION - Eye Exam Eye Exam: EOMI - ENT Exam ENT Exam: Mucous Membranes Moist - Respiratory Exam Respiratory Exam: NORMAL BREATHING PATTERN - Cardiovascular Exam Cardiovascular Exam: +S1, +S2 - GI/Abdominal Exam GI & Abdominal Exam: Soft. absent: Distended, Firm, Guarding, Rigid, Tenderness - Neurological Exam Neurological Exam: Alert, Awake - Psychiatric Exam Psychiatric exam: Normal Affect, Normal Mood - Skin Skin Exam: Dry, Intact Assessment and Plan - Assessment and Plan (Free Text) Assessment: 52F with SBO Plan: -c/w NPO -c/w IVF -c/w Analgesic/Anti-emetic -c/w SCDs - NGT to low continuous wall suction - encourage to get OOB and ambulate more - abdominal exams - D/W Dr. Thor Desai PGY2
--- NOTE | 2017-11-25 22:39 | CP.PCM.PN ---
Subjective - Date & Time of Evaluation Date of Evaluation: 11/25/17 Time of Evaluation: 16:40 - Subjective Subjective: Feel better today, had a BM this afternoon, tolerating liquid diet, pain is better Objective - Vital Signs/Intake and Output Vital Signs (last 24 hours): Temp Pulse Resp BP Pulse Ox 97.8 F 62 18 107/71 96 11/25/17 16:31 11/25/17 16:31 11/25/17 16:31 11/25/17 16:31 11/25/17 16:31 - Medications Medications: Current Medications Ondansetron HCl (Zofran Inj) 4 mg IVP Q4 PRN PRN Reason: Nausea/Vomiting Pantoprazole Sodium (Protonix Inj) 40 mg IVP DAILY ASHLEY Last Admin: 11/25/17 08:38 Dose: 40 mg Zolpidem Tartrate (Ambien) 5 mg PO HS PRN PRN Reason: sleeping difficulties - Labs Labs: 11/25/17 06:00 11/25/17 06:00 PT 11.2 Seconds (9.8-13.1) 11/23/17 19:30 INR 1.0 (0.9-1.2) 11/23/17 19:30 APTT 30.0 Seconds (25.6-37.1) 11/23/17 19:30 - Constitutional Appears: Well, Non-toxic, No Acute Distress - Head Exam Head Exam: ATRAUMATIC - Eye Exam Eye Exam: EOMI, Normal appearance Pupil Exam: NORMAL ACCOMODATION - ENT Exam ENT Exam: Mucous Membranes Moist - Neck Exam Neck Exam: Full ROM, Normal Inspection - Respiratory Exam Respiratory Exam: Clear to Ausculation Bilateral - Cardiovascular Exam Cardiovascular Exam: REGULAR RHYTHM - GI/Abdominal Exam GI & Abdominal Exam: Soft, Normal Bowel Sounds - Neurological Exam Neurological Exam: Alert, Awake, Oriented x3 - Psychiatric Exam Psychiatric exam: Normal Affect, Normal Mood - Skin Skin Exam: Dry, Intact, Normal Color, Warm Assessment and Plan - Assessment and Plan (Free Text) Assessment: 52 y/o with SBO, NG tube d/sarah, had BM today, improving, continue current medical management, advance diet tomorrow
--- NOTE | 2017-11-26 06:58 | CP.PCM.PN ---
Subjective - Date & Time of Evaluation Date of Evaluation: 11/26/17 Time of Evaluation: 06:56 - Subjective Subjective: General Surgery Progress note for Dr. Mcrae Pt seen and examined this AM at bedside no acute events overnight. Pt tolerating clears, passing gas had a bowel movement this AM. Denies any fevers chills chest pain nausea or vomiting. Objective - Vital Signs/Intake and Output Vital Signs (last 24 hours): Temp Pulse Resp BP Pulse Ox 98.6 F 73 17 123/83 98 11/25/17 23:59 11/25/17 23:59 11/25/17 23:59 11/25/17 23:59 11/25/17 23:59 - Medications Medications: Current Medications Ondansetron HCl (Zofran Inj) 4 mg IVP Q4 PRN PRN Reason: Nausea/Vomiting Pantoprazole Sodium (Protonix Inj) 40 mg IVP DAILY [facility]SHLEY Last Admin: 11/25/17 08:38 Dose: 40 mg Zolpidem Tartrate (Ambien) 5 mg PO HS PRN PRN Reason: sleeping difficulties Last Admin: 11/26/17 00:34 Dose: 5 mg - Labs Labs: 11/25/17 06:00 11/25/17 06:00 PT 11.2 Seconds (9.8-13.1) 11/23/17 19:30 INR 1.0 (0.9-1.2) 11/23/17 19:30 APTT 30.0 Seconds (25.6-37.1) 11/23/17 19:30 - Constitutional Appears: Non-toxic, No Acute Distress - Head Exam Head Exam: ATRAUMATIC, NORMOCEPHALIC - Eye Exam Eye Exam: EOMI - ENT Exam ENT Exam: Mucous Membranes Moist - Respiratory Exam Respiratory Exam: NORMAL BREATHING PATTERN - Cardiovascular Exam Cardiovascular Exam: +S1, +S2 - GI/Abdominal Exam GI & Abdominal Exam: Soft. absent: Distended, Firm, Guarding, Rigid, Tenderness - Neurological Exam Neurological Exam: Alert, Awake - Psychiatric Exam Psychiatric exam: Normal Affect, Normal Mood - Skin Skin Exam: Dry, Intact Assessment and Plan - Assessment and Plan (Free Text) Assessment: 52F with Resolved SBO Tolerating clears, advancing diet Will evaluate for food tolerance later in the day. D/W Dr. Thor Desai PGY2
[2017-11-26 08:11] VITALS: BP 117/78; PULSE 65; RESP 20; TEMP 97.5
--- NOTE | 2017-11-26 11:42 | CP.PCM.DIS ---
Provider - Provider Date of Admission: 11/23/17 22:42 Attending physician: Pardeep Vega MD Primary care physician: Pardeep Vega MD Time Spent in preparation of Discharge (in minutes): 30 Diagnosis - Discharge Diagnosis (1) SBO (small bowel obstruction) Status: Resolved Hospital Course - Lab Results Lab Results: Micro Results 11/23/17 19:30 Blood-Venous Blood Culture - Preliminary NO GROWTH AFTER 48 HOURS 11/23/17 19:30 Blood-Venous Blood Culture - Preliminary NO GROWTH AFTER 48 HOURS Most Recent Lab Values WBC 5.8 K/uL (4.8-10.8) 11/25/17 06:00 RBC 4.17 Mil/uL (3.80-5.20) 11/25/17 06:00 Hgb 12.3 g/dL (12.0-16.0) 11/25/17 06:00 Hct 36.8 % (34.0-47.0) 11/25/17 06:00 MCV 88.3 fl (81.0-99.0) 11/25/17 06:00 MCH 29.5 pg (27.0-31.0) 11/25/17 06:00 MCHC 33.4 g/dL (33.0-37.0) 11/25/17 06:00 RDW 13.6 % (11.5-14.5) 11/25/17 06:00 Plt Count 251 K/uL (130-400) 11/25/17 06:00 MPV 8.7 fl (7.2-11.7) 11/25/17 06:00 Neut % (Auto) 56.2 % (50.0-75.0) 11/25/17 06:00 Lymph % (Auto) 31.8 % (20.0-40.0) 11/25/17 06:00 [place] % (Auto) 5.7 % (0.0-10.0) 11/25/17 06:00 Eos % (Auto) 5.7 % (0.0-4.0) H 11/25/17 06:00 Baso % (Auto) 0.6 % (0.0-2.0) 11/25/17 06:00 Neut # (Auto) 3.2 K/uL (1.8-7.0) 11/25/17 06:00 Lymph # (Auto) 1.8 K/uL (1.0-4.3) 11/25/17 06:00 [place] # (Auto) 0.3 K/uL (0.0-0.8) 11/25/17 06:00 Eos # (Auto) 0.3 K/uL (0.0-0.7) 11/25/17 06:00 Baso # (Auto) 0.0 K/uL (0.0-0.2) 11/25/17 06:00 Neutrophils % (Manual) 84 % (42-75) H 11/23/17 19:30 Band Neutrophils % 3 % (0-2) H 11/23/17 19:30 Lymphocytes % (Manual) 9 % (20-50) L 11/23/17 19:30 Monocytes % (Manual) 4 % (0-10) 11/23/17 19:30 Platelet Estimate Normal (NORMAL) 11/23/17 19:30 Hypochromasia (manual) Slight 11/23/17 19:30 PT 11.2 Seconds (9.8-13.1) 11/23/17 19:30 INR 1.0 (0.9-1.2) 11/23/17 19:30 APTT 30.0 Seconds (25.6-37.1) 11/23/17 19:30 pO2 39 mm/Hg (30-55) 11/23/17 19:40 VBG pH 7.45 (7.32-7.43) H 11/23/17 19:40 VBG pCO2 48 mmHg (40-60) 11/23/17 19:40 VBG HCO3 30.7 mmol/L 11/23/17 19:40 VBG Total CO2 34.9 mmol/L (22-28) H 11/23/17 19:40 VBG O2 Sat (Calc) 77.0 % (40-65) H 11/23/17 19:40 VBG Base Excess 8.1 mmol/L (0.0-2.0) H 11/23/17 19:40 VBG Potassium 3.1 mmol/L (3.6-5.2) L 11/23/17 19:40 Sodium 140.0 mmol/L (132-148) 11/23/17 19:40 Chloride 102.0 mmol/L (98-107) 11/23/17 19:40 Glucose 143 mg/dL (65-105) H 11/23/17 19:40 Lactate 1.4 mmol/L (0.7-2.1) 11/23/17 19:40 FiO2 21.0 % 11/23/17 19:40 Sodium 146 mmol/l (132-148) 11/25/17 06:00 Potassium 3.6 MMOL/L (3.6-5.0) 11/25/17 06:00 Chloride 103 mmol/L (98-107) 11/25/17 06:00 Carbon Dioxide 29 mmol/L (22-30) 11/25/17 06:00 Anion Gap 18 (10-20) 11/25/17 06:00 BUN 8 mg/dl (7-17) 11/25/17 06:00 Creatinine 0.7 mg/dl (0.7-1.2) 11/25/17 06:00 Est GFR ( Amer) > 60 11/25/17 06:00 Est GFR (Non-Af Amer) > 60 11/25/17 06:00 Random Glucose 100 mg/dL (65-105) 11/25/17 06:00 Calcium 8.8 mg/dL (8.4-10.2) 11/25/17 06:00 Phosphorus 4.7 mg/dl (2.5-4.5) H 11/23/17 19:30 Magnesium 2.2 MG/DL (1.6-2.3) 11/23/17 19:30 Total Bilirubin 0.7 mg/dl (0.2-1.3) 11/25/17 06:00 AST 29 U/L (14-36) 11/25/17 06:00 ALT 42 U/L (9-52) 11/25/17 06:00 Alkaline Phosphatase 40 U/L (38-126) 11/25/17 06:00 Total Protein 6.5 G/DL (6.3-8.2) 11/25/17 06:00 Albumin 3.6 g/dL (3.5-5.0) 11/25/17 06:00 Globulin 2.9 gm/dL (2.2-3.9) 11/25/17 06:00 Albumin/Globulin Ratio 1.2 (1.0-2.1) 11/25/17 06:00 Lipase 41 U/L (23-300) 11/23/17 19:30 Venous Blood Potassium 3.1 mmol/L (3.6-5.2) L 11/23/17 19:40 Urine Opiates Screen Negative (NEGATIVE) 11/23/17 19:30 Urine Methadone Screen Negative (NEGATIVE) 11/23/17 19:30 Ur Barbiturates Screen Negative (NEGATIVE) 11/23/17 19:30 Ur Phencyclidine Scrn Negative (NEGATIVE) 11/23/17 19:30 Ur Amphetamines Screen Negative (NEGATIVE) 11/23/17 19:30 U Benzodiazepines Scrn Negative (NEGATIVE) 11/23/17 19:30 U Oth Cocaine Metabols Negative (NEGATIVE) 11/23/17 19:30 U Cannabinoids Screen Negative (NEGATIVE) 11/23/17 19:30 Blood Type O POSITIVE 11/23/17 19:30 Antibody Screen Negative 11/23/17 19:30 BBK History Checked No verified bt 11/23/17 19:30 Discharge Exam - Head Exam Head Exam: ATRAUMATIC, NORMOCEPHALIC - Eye Exam Eye Exam: EOMI, Normal appearance, PERRL Pupil Exam: NORMAL ACCOMODATION, PERRL - ENT Exam ENT Exam: Mucous Membranes Moist - Respiratory Exam Respiratory Exam: Clear to PA & Lateral, NORMAL BREATHING PATTERN - Cardiovascular Exam Cardiovascular Exam: REGULAR RHYTHM - GI/Abdominal Exam GI & Abdominal Exam: Normal Bowel Sounds, Soft, Unremarkable. absent: Bruit, Diminished Bowel Sounds, Distended, Firm, Guarding, Hernia, Hyperactive Bowel Sounds, Hypoactive Bowel Sounds, Mass, Organomegaly, Pulsatile Mass, Rebound, Rigid, Tenderness - Extremities Exam Extremities exam: full ROM - Back Exam Back exam: NORMAL INSPECTION - Neurological Exam Neurological exam: Alert, Normal Gait, Oriented x3 - Psychiatric Exam Psychiatric exam: Normal Affect, Normal Mood - Skin Skin Exam: Dry, Intact, Normal Color, Warm Discharge Plan - Follow Up Plan Condition: FAIR Disposition: HOME/ ROUTINE Instructions: Small Bowel Obstruction (DC) Referrals: Pardeep Vega MD [Primary Care Provider] -
[2017-11-27 14:10] VITALS: O2SAT 97
== END 2017-11-26 13:12 | disposition home or self-care (01) | DRG 390 ==
LOC: SUPCPDRO 17:59 → H.ER 17:59 → H.ERHOLD 22:42 → H.MEDSURG1 11-24 00:42
PROVIDERS: ADMIT Internal Medicine; ATTEND Internal Medicine
DX: K56.609 Unspecified intestinal obstruction, unspecified as to partial versus complete obstruction (principal); E66.9 Obesity, unspecified; I10 Essential (primary) hypertension; Z68.32 Body mass index [BMI] 32.0-32.9, adult